=== PATIENT | female | born 1955 | race Caucasian/White ===

== ENCOUNTER → 2016-05-04 | Day surgery (SDC) | payer OTHER ==
[~2016-05-04] MED LIST: ACID REDUCER20 MG PO; ANAPROX DS PO; ANTIANXIETY MED; ANTIVERT PO; CARAFATE1 G PO; CELEXA20 MG PO; CITALOPRAM HBR40 M1 PO; DOLOBID500 MG PO; ENDOCET 5-3251 EACH PO; FLEXERIL10 MG PO; LASIX PO; NAPROXEN PO; NEURONTIN PO; NEURONTIN600 MG PO; NEXIUM PO; NO MEDICATIONS; OMEPRAZOLE; OMEPRAZOLE40 M1 PO; OXYCODON-ACETA1 EAC1 PO; PLAVIX PO; SIMVASTATIN40 MG PO; VISTARIL PO; ZOCOR PO
--- NOTE | ~2016-05-04 | OR ---
Unit #: [id number] #: [id number] Patient: ROMEL BOYLE [id number] [address] [address] [id number] O MR#: [id number] NAME: ROMEL BOYLE. ROOM: Date of Procedure: 05/04/2016 Admission Date: 05/04/2016 Surgeon: John Chavez M.D. : 1955 Attending Physician: John Chavez M.D. Primary Care Physician: Kevin Maxwell M.D. OPERATIVE REPORT PREOPERATIVE DIAGNOSIS Right carpal tunnel syndrome. POSTOPERATIVE DIAGNOSIS Right carpal tunnel syndrome. PROCEDURE PERFORMED Right carpal tunnel release. SHEET ROCK TAPER None. ANESTHESIA General with LMA. COMPLICATIONS None. SPECIMENS None. DRAINS None. SURGICAL IMPLANTS None. INDICATION FOR PROCEDURE Ms. Boyle is a 60-year-old female with positive symptoms for carpal tunnel syndrome. The patient had failed conservative treatment. EMG consistent with carpal tunnel syndrome on the right side. The patient wished to proceed with elective carpal tunnel release. I offered her a cortisone injection, but she declined. It was felt to be reasonable based on her clinical symptoms and documented findings. Risks, benefits, and alternatives discussed. Informed consent was obtained. Risks include, but not limited to, infection, bleeding, nerve injury, blood clots, risks associated with anesthesia, need for further surgery, and possibly . DESCRIPTION OF PROCEDURE On 05/04/2016, the patient was seen in the preoperative holding area, Unit #: [id number] #: [id number] Patient: ROMEL BOYLE where her surgical site was marked. Preoperative antibiotics were received. H and P consent updated. The patient was taken to the operating room and placed in the operative table in supine position. General anesthesia was provided without complications. Right arm tourniquet placed. Right arm prepped and draped in typical sterile fashion. Time-out performed confirming the correct surgical site and procedure. At this point, Esmarch was used to exsanguinate the arm and tourniquet inflated to 250 mmHg. Approximately 5 mL of Marcaine 0.5% without epinephrine was sterilely injected around the carpal tunnel site. A longitudinal incision about 1 inch in length was made in line with the radial border of the fourth ray extending from Engel line to the distal wrist flexion crease. Incision was taken down through skin and subcutaneous tissues. Soft tissues were retracted. The transverse carpal ligament was identified. It was noted to be thickened and very tight over the carpal tunnel. It was then incised at the midportion. The soft tissue beneath the ligament was protected. Under direct visualization, the transverse carpal ligament was released distally to the palmar fat. Proximally, it was done in a similar fashion releasing the ligament up to the wrist flexion crease noting improved spacing around the median nerve. Once this was complete, the wound was thoroughly irrigated with normal saline. Tourniquet released at 18 minutes. Hemostasis achieved. The skin incision was closed with 4-0 nylon horizontal mattress stitches. Xeroform, 4x4s, cast padding, and a volar splint were placed. The patient was subsequently awakened from general anesthesia in stable condition and taken to PACU postoperatively. POSTOPERATIVE PLAN The patient will be discharged home. She did have digit motion. She will keep the splint clean and dry. No complications encountered during the surgical procedure. Dictated by... John Chavez M.D. GERA/kathleen TD: 05/05/2016 08:23 JOB #: [id number] OPERATIVE REPORT Page 1 of 1 X X PROCEDURE OPERATIVE NOTE
== END | disposition home or self-care (01) ==
LOC: CSUR 09:45
DX: G56.01 Carpal tunnel syndrome, right upper limb (principal); E78.00 Pure hypercholesterolemia, unspecified; M19.90 Unspecified osteoarthritis, unspecified site; Z87.01 Personal history of pneumonia (recurrent); Z87.891 Personal history of nicotine dependence; K21.9 Gastro-esophageal reflux disease without esophagitis; Z88.0 Allergy status to penicillin; Z88.1 Allergy status to other antibiotic agents; Z88.8 Allergy status to other drugs, medicaments and biological substances; Z79.891 Long term (current) use of opiate analgesic; Z79.899 Other long term (current) drug therapy; Z90.89 Acquired absence of other organs; Z98.890 Other specified postprocedural states
CPT/HCPCS: J2250; J2370; J3010

== ENCOUNTER → 2016-07-21 | Outpatient (CLI) | payer OTHER ==
--- NOTE | ~2016-07-21 | MY11 ---
[facility] A Service of [facility] & [facility] RADIOLOGY TEXT RESULTS PATIENT: ROMEL BOYLE LOCATION: [facility] : 53 UNIT #: [id number] AGE: [address]: ALANIS BUTLER MD SEX: F ORDER DR: [id number] [facility]. [place], [place] [address] [id number] O MR#: [id number] Acc #: [id number] NAME: ROMEL BOYLE. : 1955 SEX: F STUDY DATE/TIME: 07/21/2016 13:19 UNIT: [facility] ROOM: STUDY DESCRIPTION: MY Mammogram Screening Dig Toño Attending Physician: Alanis Butler M.D. Referring Physician: Alanis Butler M.D. Ordering Physician: Alanis Butler M.D. Primary Care Physician: Alanis Butler M.D. MEDICAL IMAGING REPORT This report is preliminary unless electronic signature is present EXAM Digital screening mammogram, 07/21/2016, [facility]. HISTORY 60-year-old woman, no risk elevation. Annual screen. COMPARISON Mammograms 11/22/2008, 05/10/2011. FINDINGS Digital imaging of each breast was completed utilizing a two-view examination of each breast in craniocaudal and mediolateral-oblique projections. Review and interpretation of digital mammograms include a second review in conjunction with FDA-approved CAD device. There is a normal parenchymal presentation bilaterally consistent with the patient's age. There are no breast masses imaged and no parenchymal asymmetry is visualized. There are no suspicious microcalcifications and I see no focal architectural disturbance. IMPRESSION Negative screening digital mammogram. One-year followup recommended. Patients over the age of 40 are entered into a reminder system with target due date for the next mammogram. A result letter will also be sent to the patient. BIRADS: 1 Negative ADDENDUM Breast parenchyma is fatty replaced. [facility] A Service [facility] & [facility] RADIOLOGY TEXT RESULTS PATIENT: ROMEL BOYLE LOCATION: [facility] : 53 UNIT #: [id number] AGE: [address]: ALANIS BUTLER MD SEX: F ORDER DR: Dictated by... Ryan Leavitt M.D. THIS IS AN ELECTRONICALLY VERIFIED REPORT Ryan Leavitt M.D. at 07/21/2016 3:35 PM ARIEL/enmanuel TD: 07/21/2016 15:06 JOB #: [id number] MEDICAL IMAGING REPORT Page 1 of 1 COPY
== END | disposition home or self-care (01) ==
LOC: CWCC 06-22 10:00
DX: Z12.31 Encounter for screening mammogram for malignant neoplasm of breast (principal); R92.8 Other abnormal and inconclusive findings on diagnostic imaging of breast
CPT/HCPCS: G0202